=== PATIENT | male | born 1960 | race Asian ===

== ENCOUNTER 2018-07-07 06:30 | Inpatient (IN) | payer BC ==
[2018-07-07] VITALS (8 sets, daily range): BP systolic 99–122; BP diastolic 65–78
[~2018-07-07] VITALS: Ht 167.6 cm; Wt 62.4 kg
[2018-07-07] MEDS ORDERED: ONDANSETRON HCL 4MG/2ML INJ IV STA (06:52)
[2018-07-07] MEDS ORDERED: MORPHINE SULFATE 4 MG/ML CPJ (NOT FOR IM USE) IV STA (06:52)
[2018-07-07] MEDS ORDERED: NITROGLYCERIN 0.4MG TABLET SL SL PRN (07:00)
[2018-07-07] MEDS ORDERED: NITROGLYCERIN OINT 1GM/INCH UDPKT TD ONE (07:00)
[2018-07-07] MEDS ORDERED: ASPIRIN 81MG TABLET PO ONE (07:00)
[2018-07-07 07:26] LABS: EOSINOPHILS % 6.4 % (0.0-5.0); HEMATOCRIT. 45.5 % (42.0-52.0); HEMOGLOBIN. 15.4 g/dL (14.0-18.0); MEAN CORPUSCULAR HEMOGLOBIN 28.7 pg (28.0-32.0); MEAN CORPUSCULAR VOLUME 84.7 fL (80.0-94.0); MEAN PLATELET VOLUME 8.7 fl (7.4-10.4); MONOCYTES % 7.3 % (2.0-8.0); NEUTROPHILS % 44.3 % (40.0-76.0); PLATELET 194 x1000/uL (130-400); RED BLOOD CELL COUNT 5.37 mill/uL (4.7-6.1)
[2018-07-07 07:33] LABS: INR 1.1; PARTIAL THROMBOPLASTIN TIME 25.8 sec (23.4-31.0); PROTHROMBIN TIME 10.9 sec (9.1-11.1)
[2018-07-07 07:56] LABS: CHLORIDE 109 mEq/L (98-107)
[2018-07-07 08:04] LABS: CREATINE KINASE 133 IU/L (39-308); CREATINE KINASE MB FRACTION < 1.0 ng/mL (0.5-3.6)
[2018-07-07 08:10] LABS: T4 FREE 0.99 ng/dL (0.76-1.46)
[2018-07-07] MEDS ORDERED: CLONIDINE 0.1MG TABLET PO PRN (08:45)
[2018-07-07 09:22] LABS: CREATINE KINASE MB FRACTION < 1.0 ng/mL (0.5-3.6)
[2018-07-07 12:21] LABS: *COCAINE SCREEN URINE NEGATIVE (NEGATIVE); METHADONE URINE SCREEN NEGATIVE (NEGATIVE); OPIATES URINE SCREEN PRESUMTIVE POSITIVE (NEGATIVE)
[2018-07-07 12:22] LABS: *AMPHETAMINES SCREEN URINE NEGATIVE (NEGATIVE); *BARBITURATES SCREEN URINE NEGATIVE (NEGATIVE); *BENZODIAZEPINES SCREEN URINE NEGATIVE (NEGATIVE); CANNABINOID URINE SCREEN NEGATIVE (NEGATIVE); PHENCYCLIDINE URINE SCREEN NEGATIVE (NEGATIVE)
[2018-07-07] MEDS ORDERED: ONDANSETRON HCL 4MG/2ML INJ IV PRN (12:30)
[2018-07-07] MEDS ORDERED: IPRATROPIUM/ALBUTEROL 0.5-3(2.5)MG/3ML NEB INH PRN (12:30)
[2018-07-07] MEDS ORDERED: ACETAMINOPHEN 325MG TABLET PO PRN (12:30)
[2018-07-07] MEDS: AMLODIPINE 2.5MG TABLET PO SCH ×2 (12:52→21:23)
[2018-07-07] MEDS ORDERED: REGADENOSON 0.4 MG/5 ML IV NR (16:00)
[2018-07-07 16:18] LABS: CREATINE KINASE 105 IU/L (39-308)
[2018-07-07] MEDS ORDERED: IBUPROFEN 600MG TABLET PO PRN (19:30)
[2018-07-08] VITALS (9 sets, daily range): BP systolic 93–155; BP diastolic 68–97
[2018-07-08 07:21] LABS: BASOPHILS % 0.8 % (0.0-2.0); HEMATOCRIT. 40.6 % (42.0-52.0); HEMOGLOBIN. 14.1 g/dL (14.0-18.0); LYMPHOCYTES % 28.9 % (20.0-50.0); MEAN CORPUSCULAR HEMOGLOBIN 29.1 pg (28.0-32.0); MEAN CORPUSCULAR VOLUME 83.8 fL (80.0-94.0); MEAN PLATELET VOLUME 8.9 fl (7.4-10.4); MONOCYTES % 6.5 % (2.0-8.0); NEUTROPHILS % 57.8 % (40.0-76.0); PLATELET 182 x1000/uL (130-400); RED BLOOD CELL COUNT 4.84 mill/uL (4.7-6.1); RED CELL DISTRIBUTION WIDTH 12.7 % (11.6-14.6)
[2018-07-08 07:44] LABS: CHLORIDE 107 mEq/L (98-107)
[2018-07-08 08:05] LABS: CREATINE KINASE 91 IU/L (39-308); CREATINE KINASE MB FRACTION < 1.0 ng/mL (0.5-3.6); HDL CHOLESTEROL 38 mg/dL (40-59); LDL CHOLESTEROL 141 mg/dL (5-100)
[2018-07-08] MEDS ORDERED: REGADENOSON 0.4 MG/5 ML IV ONE (08:15)
[2018-07-08] MEDS ORDERED: ASPIRIN 81MG EC TABLET PO SCH (09:00)
[2018-07-08] MEDS: AMLODIPINE 2.5MG TABLET PO SCH (09:55)
[2018-07-08] MEDS ORDERED: MESA1.2T2 MT (10:39)
[2018-07-08] MEDS ORDERED: MAGNESIUM 2 G PREMIX 50 ML IV ONE (11:15)
[2018-07-08] MEDS ORDERED: MAGNESIUM SULFATE 2 GM in DEXTROSE 5% WATER 46 ML IV SCH (13:00)
== END 2018-07-08 14:20 | disposition home or self-care (01) | DRG 313 ==
LOC: ER 06:30 → 3WST 08:04 → EDBEDREQ 08:06 → EDBEDREQSVC 08:38 → ENRESERV 10:00
PROVIDERS: ADMIT Internal Medicine Critical Care Medicine; ATTEND Internal Medicine Critical Care Medicine
DX: R07.89 Other chest pain (principal); E78.5 Hyperlipidemia, unspecified; E83.42 Hypomagnesemia; I10 Essential (primary) hypertension; I49.3 Ventricular premature depolarization; M50.30 Other cervical disc degeneration, unspecified cervical region
CPT/HCPCS: 36415; 71045; 72141; 78452; 80061; 80305; 82550; 82553; 83735; 83880; 84439; 84443; 84484; 85379; 93005; 93017; 93306; 96374; 96375; 99285; A9500; J2270; J2405; J2785; J3475; J7050; J7060

== ENCOUNTER → 2019-05-27 | Outpatient (CLI) | payer BC ==
[~2019-05-27] MED LIST: MESA1.2T2 MT
[2019-05-27 08:41] LABS: EOSINOPHILS % 9.2 % (0.0-5.0); HEMATOCRIT. 42.9 % (42.0-52.0); HEMOGLOBIN. 14.7 g/dL (14.0-18.0); LYMPHOCYTES % 42.1 % (20.0-50.0); MEAN CORPUSCULAR HEMOGLOBIN 28.3 pg (28.0-32.0); MEAN CORPUSCULAR VOLUME 82.7 fL (80.0-94.0); MEAN PLATELET VOLUME 8.4 fl (7.4-10.4); MONOCYTES % 7.6 % (2.0-8.0); NEUTROPHILS % 40.1 % (40.0-76.0); PLATELET 196 x1000/uL (130-400); RED BLOOD CELL COUNT 5.19 mill/uL (4.7-6.1); RED CELL DISTRIBUTION WIDTH 13.1 % (11.6-14.6)
[2019-05-27 09:49] LABS: CHLORIDE 109 mEq/L (98-107)
[2019-05-27 09:55] LABS: LDL CHOLESTEROL 175 mg/dL (5-100)
[2019-05-27 09:56] LABS: HDL CHOLESTEROL 38 mg/dL (40-59); T4 FREE 0.84 ng/dL (0.76-1.46)
== END | disposition home or self-care (01) ==
LOC: LAB 08:21
PROVIDERS: ATTEND Internal Medicine Critical Care Medicine
DX: E88.81 Metabolic syndrome and other insulin resistance (principal); E78.9 Disorder of lipoprotein metabolism, unspecified
CPT/HCPCS: 36415; 80061; 84439; 84443; 84481

== ENCOUNTER → 2020-06-13 | Outpatient (CLI) | payer BC ==
[2020-06-13 10:38] LABS: BASOPHILS % 1.2 % (0.0-2.0); EOSINOPHILS % 6.8 % (0.0-5.0); HEMATOCRIT. 44.8 % (42.0-52.0); LYMPHOCYTES % 39.1 % (20.0-50.0); MEAN CORPUSCULAR HEMOGLOBIN 27.7 pg (28.0-32.0); MEAN CORPUSCULAR VOLUME 82.8 fL (80.0-94.0); MEAN PLATELET VOLUME 8.5 fl (7.4-10.4); NEUTROPHILS % 46.9 % (40.0-76.0); PLATELET 216 x1000/uL (130-400); RED BLOOD CELL COUNT 5.42 mill/uL (4.7-6.1); RED CELL DISTRIBUTION WIDTH 13.1 % (11.6-14.6)
[2020-06-13 10:43] LABS: CHLORIDE 105 mEq/L (98-107)
[2020-06-13 10:52] LABS: LDL CHOLESTEROL 178 mg/dL (5-100)
[2020-06-13 10:54] LABS: HDL CHOLESTEROL 40 mg/dL (40-59)
[2020-06-13 10:57] LABS: T4 FREE 1.01 ng/dL (0.76-1.46); TOTAL IRON BINDING CAPACITY 485 ug/dL (250-450)
== END | disposition home or self-care (01) ==
LOC: LAB 10:14
PROVIDERS: ATTEND Internal Medicine Critical Care Medicine
DX: Z00.01 Encounter for general adult medical examination with abnormal findings (principal)
CPT/HCPCS: 36415; 80053; 80061; 82306; 83036; 83540; 83550; 84439; 84443; 84481; 85025

== ENCOUNTER → 2022-01-26 | Outpatient (CLI) | payer BC ==
[2022-01-26 06:46] LABS: BASOPHILS % 1.2 % (0.0-2.0); EOSINOPHILS % 10.2 % (0.0-5.0); HEMATOCRIT. 42.5 % (42.0-52.0); HEMOGLOBIN. 14.5 g/dL (14.0-18.0); LYMPHOCYTES % 34.9 % (20.0-50.0); MEAN CORPUSCULAR HEMOGLOBIN 28.4 pg (28.0-32.0); MEAN CORPUSCULAR VOLUME 83.6 fL (80.0-94.0); MEAN PLATELET VOLUME 8.7 fl (7.4-10.4); MONOCYTES % 7.8 % (2.0-8.0); NEUTROPHILS % 45.9 % (40.0-76.0); PLATELET 206 x1000/uL (130-400); RED BLOOD CELL COUNT 5.09 mill/uL (4.7-6.1); RED CELL DISTRIBUTION WIDTH 12.6 % (11.6-14.6)
[2022-01-26 06:50] LABS: CHLORIDE 109 mEq/L (98-107)
[2022-01-26 07:05] LABS: HDL CHOLESTEROL 52 mg/dL (40-59); LDL CHOLESTEROL 107 mg/dL (5-100); T4 FREE 0.96 ng/dL (0.76-1.46)
== END | disposition home or self-care (01) ==
LOC: LAB 06:13
PROVIDERS: ATTEND Internal Medicine Critical Care Medicine
DX: Z00.01 Encounter for general adult medical examination with abnormal findings (principal)
CPT/HCPCS: 36415; 80053; 80061; 82378; 84439; 84443; 84481; 85025